=== PATIENT | male | born 1970 | race Two or more races ===

== ENCOUNTER 2024-02-23 06:29 | Emergency (ER) | payer BC ==
[2024-02-23] MEDS: Acetaminophen/HYDROcodone 325-5 MG Tab PO ONE (08:27)
[2024-02-23] MEDS: Penicillin V Potassium 500 MG Tab PO STA (08:28)
[2024-02-23] MEDS: Ketorolac 60 MG/2 ML SDV IM ONE (08:28)
== END 2024-02-23 08:58 | disposition home or self-care (01) ==
LOC: JD.ED 06:29
DX: K04.7 Periapical abscess without sinus (principal); K02.9 Dental caries, unspecified; Z79.899 Other long term (current) drug therapy
CPT/HCPCS: 96372; 99283; A9270; J1885